=== PATIENT | male | born 1955 | race Caucasian/White ===

== ENCOUNTER 2024-10-09 13:37 | Inpatient (IN) | payer MEDICARE, SELFPAY ==
[2024-10-09] VITALS (10 sets, daily range): BP systolic 167–191; BP diastolic 100–145; PULSE 68–100; RESP 16–20; TEMP 35.1–37.1; O2SAT 94–98; BMI 26.7; BMI 27.1
--- NOTE | 2024-10-09 13:46 | ED.ABDPAIN ---
HPI - Abdominal Pain General Time Seen by Provider: 13:47 Date Seen: 10/09/24 Chief Complaint: Abdominal Pain Stated Complaint: Abdominal Pain Time Seen by Provider: 10/09/24 13:46 Source: patient and RN notes reviewed Mode of arrival: ambulatory Limitations: no limitations History of Present Illness HPI narrative: This 69-year-old male is coming in with periumbilical abdominal pain that has been present since about 2:00 a.m.. It is there constantly, walking maybe makes it worse, nothing makes it better. It awoke him from sleep. He had a normal bowel movement yesterday. He has had diminished appetite, last ate last night at dinner around 6:00 p.m.. He has not noted fever but he has felt hot and sweaty with the pain. No urinary symptoms. No prior abdominal surgery. He is nauseated, has reportedly had some dry heaving but no true vomiting. He is not on any chronic medications, no known cardiac or pulmonary issues. Related Data Home Medications ?Medication ?Instructions ?Recorded ?Confirmed No Known Home Medications 10/09/24 10/09/24 Allergies Allergy/AdvReac Type Severity Reaction Status Date / Time No Known Drug Allergies Allergy Verified 10/09/24 13:45 Review of Systems Status of ROS Reports: 6 or more systems reviewed and unremarkable except as noted in History and below PFSH PFSH Social History Smoking Status: Never smoker How often do you have a drink containing alcohol: monthly or less AUDIT-C Alcohol total score: 1 Non-prescribed substance use: denies use Exam Const: Vital Signs, click to edit/add: Vital Signs - 24 hr 10/09/24 13:41 10/09/24 13:51 10/09/24 13:59 Temperature 95.2 F L Pulse Rate [Pulse Oximeter] 68 Pulse Rate [Right Pulse Oximeter] Respiratory Rate 20 Blood Pressure [Ri ght Arm] Blood Pressure [Ri ght Upper Arm] 176/100 H Pulse Oximetry 98 97 Oxygen Delivery Me thod Room Air 10/09/24 15:40 10/09/24 17:37 Temperature 96.6 F L 98.7 F Pulse Rate [Pulse Oximeter] 76 Pulse Rate [Right Pulse Oximeter] 87 Respiratory Rate 18 18 Blood Pressure [Ri ght Arm] 167/109 H Blood Pressure [Ri ght Upper Arm] 174/106 H Pulse Oximetry 97 97 Oxygen Delivery Me thod Room Air Room Air This 69-year-old male is alert, interactive, no apparent distress but looks like he is uncomfortable. Sclera clear, face atraumatic, able speak in complete sentences. CV regular rate and rhythm, soft 1 to 2/6 systolic murmur, normal S1-S2, no S3-S4. Abdomen is soft, nondistended, bowel sounds are present. He has definite para umbilical abdominal pain and pain that is moving towards the right lower quadrant. There is no rebound or guarding. Skin is dia, warm and dry, no rash. Patient was ambulatory into the ED of his own accord. Documenting provider has reviewed patient's vital signs: yes Course Course ED Course: This patient is concerning for surgical abdomen, will be proceeding with CT imaging. Will get full complement of labs. He is going to need some pain management, will observe respiratory status with pulse oximetry, initiate IV fluids, fentanyl and Zofran. Reevaluation(s) Time of Reevaluation #1: 15:22 Reevaluation #1: hydraulic controls technician called, patient is contrast infiltrated and the CT is noncontrast. We will have the noncontrast CT read and see if this is adequate to give us a diagnosis. His glucose was 186, he will be doing a hemoglobin A1c to see if patient is qualifying for diabetes. Time of Reevaluation #2: 15:45 Reevaluation #2: Have reviewed with patient my preliminary finding that it looks like pancreatitis on his CT. We will make sure the radiologist does not think we need repeat imaging at this time. Will obtain a right upper quadrant ultrasound at some point to look at his gallbladder. He does endorse drinking alcohol, had 2 or 3 beers golfing yesterday. His IV infiltrated, they are looking to find new site. His pain is returning, IV Fentanyl initially did help. Time of Reevaluation #3: 16:53 Reevaluation #3: Patient's pain has not been controlled by the 25 mcg dose of fentanyl. Will move to dose of Dilaudid. Consultations Consultation #1: Have reviewed patient's case with Dr. Buchanan. I do not see this patient tolerating orals or oral pain medicine at this time. He is requiring IV fentanyl, have had to order subsequent dosing. She is aware that the gallbladder has not been completely assessed at this time. Radiologist was able to see that his appendix is normal. Time: 16:23 Vital Signs Vital signs: Initial Vital Signs Pulse Rate 68 10/09/24 13:41 Respiratory Rate 20 10/09/24 13:41 Blood Pressure 176/100 H 10/09/24 13:41 Blood Pressure Mean 125 H 10/09/24 13:41 Blood Pressure Position Sitting 10/09/24 13:41 Pulse Oximetry 98 10/09/24 13:41 Oxygen Delivery Method Room Air 10/09/24 13:41 Vital Signs Pulse Rate 68 10/09/24 13:41 Respiratory Rate 20 10/09/24 13:41 Blood Pressure 176/100 H 10/09/24 13:41 Pulse Oximetry 98 10/09/24 13:41 Oxygen Delivery Method Room Air 10/09/24 13:41 Temperature 98.7 F 10/09/24 17:37 Pulse Rate 87 10/09/24 17:37 Respiratory Rate 18 10/09/24 17:37 Blood Pressure 167/109 H 10/09/24 17:37 Pulse Oximetry 97 10/09/24 17:37 Oxygen Delivery Method Room Air 10/09/24 17:37 Medications Administered Medications: Discontinued Medications Generic Name Dose Route Start Last Admin Trade Name Freq PRN Reason Stop Dose Admin Fentanyl 50 mcg 10/09/24 13:59 10/09/24 14:29 Fentanyl 100 Mcg/2 Ml Inj IVP 10/09/24 14:00 50 mcg ONCE ONE Administration Fentanyl 25 mcg 10/09/24 15:52 10/09/24 16:09 Fentanyl 100 Mcg/2 Ml Inj IVP 25 mcg Q2H PRN Administration Pain Hydromorphone HCl 0.5 mg 10/09/24 16:53 10/09/24 16:59 Hydromorphone 0.5 Mg/0.5 Ml Inj IVP 10/09/24 16:54 0.5 mg ONCE ONE Administration Sodium Chloride 1,000 mls @ 500 mls/hr 10/09/24 14:00 10/09/24 17:17 0.9 % Sodium Chloride 1000 Ml IV 10/09/24 15:59 Infused .Q2H JESSENIA Infusion Sodium Chloride 1,000 mls @ 500 mls/hr 10/09/24 16:22 10/09/24 17:17 0.9 % Sodium Chloride 1000 Ml IV 10/09/24 18:21 500 mls/hr .Q2H JESSENIA Infusion Ondansetron HCl 4 mg 10/09/24 13:59 10/09/24 14:27 Ondansetron 2 Mg/Ml Inj IVP 10/09/24 14:00 4 mg ONCE ONE Administration MDM - Abdominal Pain Lab Data Attestation: I reviewed the patient's lab results. Labs: Lab Results 10/09/24 10/09/24 Range/Units 14:25 15:20 WBC 14.10 H (4.50-11.00) K/uL RBC 5.26 (4.30-5.90) m/uL Hgb 16.3 (13.5-17.5) gm/dL Hct 47.3 (37.0-53.0) % MCV 90 (80-100) fL MCH 31 (26-34) pg MCHC 35 (32-36) gm/dL RDW Coeff of Mayra 11.7 (11.5-15.5) % Plt Count 229 (140-440) K/uL Neut % (Auto) 91.3 H (42.0-72.0) % Lymph % (Auto) 4.6 L (20-44) % [place] % (Auto) 3.8 (0.0-11.0) % Eos % (Auto) 0.1 (0.0-7.0) % Baso % (Auto) 0.1 (0.0-3.0) % Neut # (Auto) 12.90 H (1.7-7.0) K/uL Lymph # (Auto) 0.60 L (0.90-2.90) K/uL [place] # (Auto) 0.50 (0.00-0.90) K/UL Eos # (Auto) 0.00 (0.00-0.50) K/uL Baso # (Auto) 0.00 (0.00-0.30) K/uL Abs Immat Gran (auto) 0.00 (0.00-0.30) K/uL Imm/Tot Granulo (auto) 0.1 % Sodium 138 (135-149) mmol/L Potassium 4.5 (3.6-5.1) mmol/L Chloride 101 (96-114) mmol/L Carbon Dioxide 29 (20-32) mmol/L Anion Gap 8 (7-15) mEq/L BUN 21 (7-30) mg/dL Creatinine 0.9 (0.5-1.5) mg/dL Estimated Creat Clear 75.44 Estimated GFR 92 ml/min Glucose 186 H (60-115) mg/dL Hemoglobin A1c 5.1 (0-5.6) % Lactate 2.5 H (0.5-1.9) mmol/L Calcium 10.5 (8.4-10.6) mg/dL Total Bilirubin 0.9 (0.1-1.5) mg/dL AST 52 H (12-35) U/L ALT 40 (4-50) U/L Alkaline Phosphatase 84 (40-150) U/L C-Reactive Protein 0.9 (0.5-1.0) mg/dL Total Protein 7.9 (6.0-8.3) g/dL Albumin 4.6 (3.3-5.0) g/dL Triglycerides 80 (40-149) mg/dL Lipase 5187 H (23-300) U/L Lab Acknowledgement Test Added Imaging Data CT scan - abdomen: Attestation: I have reviewed the pertinent imaging results. Radiologist's impression: Patient: EVITA THOMPSON Facility:?[facility] Patient ID:?[id number] Site Patient ID:?[id number]. Site :?[id number] Study:?CT-Abdomen/Pelvis W/O-10/09/2024 3:24:21 PM Ordering Physician:?Thony Shah Final Report: INDICATION: Periumbilical pain. TECHNIQUE: CT abdomen and pelvis without contrast. COMPARISON: None. FINDINGS: Lower chest: Asymmetric elevation of the left hemidiaphragm. Mild left basilar bronchiectasis with surrounding basilar consolidation, at least partially reflecting atelectasis. Noncontrast technique limits solid organ evaluation. Liver: Normal in size and attenuation. No suspicious masses. Gallbladder and bile ducts: No stones or inflammation. No biliary dilatation. Pancreas: Moderate diffuse fat stranding about the pancreas with small to moderate volume free fluid tracking inferiorly along the retroperitoneal planes. Pancreatic parenchyma is not well evaluated on this noncontrast examination. Spleen: Normal in size. No masses. Adrenal glands: Normal in size. No nodules. Kidneys: Normal in size. No suspicious masses, stones, or hydronephrosis. GI tract: Adjacent to the pancreas, there is relative wall thickening of the 2nd and 3rd duodenal segments. Bowel is normal in caliber without evidence of obstruction. Mild colonic diverticulosis. Normal appendix. Vasculature: Abdominal aorta is normal in caliber. Lymph nodes: No lymphadenopathy. Peritoneum/Abdominal Wall: No sign of mass or infiltration. No free air small to moderate volume free fluid about the pancreas, as above. Pelvis: Nonspecific mild prostate calcification. Bones: Unremarkable for age. IMPRESSION: 1. Findings compatible with acute pancreatitis with small to moderate volume peripancreatic free fluid. The pancreatic parenchyma cannot be reliably evaluated for signs of necrosis or an underlying mass on this noncontrast examination. 2. Mild left basilar bronchiectasis with surrounding basilar consolidation, at least partially reflecting atelectasis. Please note that all CT scans at this facility use dose modulation, iterative reconstruction, and/or weight-based dosing when appropriate to reduce radiation dose to as low as reasonably achievable. Dictated by Chucky Sotelo MD @ 10/09/2024 4:04:19 PM (Electronic Signature) ECG Data Attestation: I personally reviewed and interpreted this ECG as follows: (Sinus rhythm with premature atrial complexes, rate is in the 70s, [address] T-wave changes.) ECG interpretation date: 10/09/24 Prior ECG tracings: not available for review Discharge Plan Discharge Clinical Impression: Pancreatitis Qualifiers: Chronicity: acute Pancreatitis type: unspecified pancreatitis type Acute pancreatitis complication: unspecified Qualified Code(s): K85.90 - Acute pancreatitis without necrosis or infection, unspecified
--- NOTE | 2024-10-09 13:59 | CRLHL7_ITS ---
For Patients: As a result of the Century Cures Act, medical imaging exams and procedure reports are released immediately into your electronic medical record. You may view this report before your referring provider. If you have questions, please contact your health care provider. INDICATION: Periumbilical pain. TECHNIQUE: CT abdomen and pelvis without contrast. COMPARISON: None. FINDINGS: Lower chest: Asymmetric elevation of the left hemidiaphragm. Mild left basilar bronchiectasis with surrounding basilar consolidation, at least partially reflecting atelectasis. Noncontrast technique limits solid organ evaluation. Liver: Normal in size and attenuation. No suspicious masses. Gallbladder and bile ducts: No stones or inflammation. No biliary dilatation. Pancreas: Moderate diffuse fat stranding about the pancreas with small to moderate volume free fluid tracking inferiorly along the retroperitoneal planes. Pancreatic parenchyma is not well evaluated on this noncontrast examination. Spleen: Normal in size. No masses. Adrenal glands: Normal in size. No nodules. Kidneys: Normal in size. No suspicious masses, stones, or hydronephrosis. GI tract: Adjacent to the pancreas, there is relative wall thickening of the 2nd and 3rd duodenal segments. Bowel is normal in caliber without evidence of obstruction. Mild colonic diverticulosis. Normal appendix. Vasculature: Abdominal aorta is normal in caliber. Lymph nodes: No lymphadenopathy. Peritoneum/Abdominal Wall: No sign of mass or infiltration. No free air small to moderate volume free fluid about the pancreas, as above. Pelvis: Nonspecific mild prostate calcification. Bones: Unremarkable for age. IMPRESSION: 1. Findings compatible with acute pancreatitis with small to moderate volume peripancreatic free fluid. The pancreatic parenchyma cannot be reliably evaluated for signs of necrosis or an underlying mass on this noncontrast examination. 2. Mild left basilar bronchiectasis with surrounding basilar consolidation, at least partially reflecting atelectasis. Please note that all CT scans at this facility use dose modulation, iterative reconstruction, and/or weight-based dosing when appropriate to reduce radiation dose to as low as reasonably achievable. Dictated by Chucky Sotelo MD @ 10/09/2024 4:04:19 PM (Electronically Signed)
[2024-10-09] MEDS: ONDANSETRON 2 MG/ML inj 4 MG IVP (14:27)
[2024-10-09 14:36] LABS: Hematocrit 47.3 % (37.0-53.0); Hemoglobin* 16.3 gm/dL (13.5-17.5); Immature Granulocytes Pct Auto 0.1 %; Mean Corpuscular HGB Conc 35 gm/dL (32-36); Mean Corpuscular Hemoglobin 31 pg (26-34); Mean Corpuscular Volume 90 fL (80-100); RDW Coefficient of Variation % 11.7 % (11.5-15.5); Red Blood Count 5.26 m/uL (4.30-5.90); White Blood Count* 14.10 K/uL (4.50-11.00)
[2024-10-09 14:47] LABS: Albumin* 4.6 g/dL (3.3-5.0); Chloride* 101 mmol/L (96-114)
[2024-10-09 14:48] LABS: Immature Granulocytes Abs Auto 0.00 K/uL (0.00-0.30); Lymphocytes Absolute Auto 0.60 K/uL (0.90-2.90); Potassium* 4.5 mmol/L (3.6-5.1); Slide Review Reflex No; Sodium* 138 mmol/L (135-149)
[2024-10-09 14:50] LABS: Alanine Aminotransferase* 40 U/L (4-50); Aspartate Amino Transferase* 52 U/L (12-35); Blood Urea Nitrogen* 21 mg/dL (7-30); Creatinine* 0.9 mg/dL (0.5-1.5); Est. Creatinine Clearance* 75.44; Estimated Glomerular Filt Rate 92 ml/min
[2024-10-09 14:51] LABS: Alkaline Phosphatase* 84 U/L (40-150); Anion Gap 8 mEq/L (7-15); Bilirubin Total* 0.9 mg/dL (0.1-1.5); Calcium* 10.5 mg/dL (8.4-10.6); Carbon Dioxide* 29 mmol/L (20-32); Glucose* 186 mg/dL (60-115); Total Protein* 7.9 g/dL (6.0-8.3)
[2024-10-09 15:53] LABS: Lactate* 2.5 mmol/L (0.5-1.9)
--- NOTE | 2024-10-09 17:49 | PM.IMHP1 ---
Assessment and Plan Assessment and plan (1) Pancreatitis: Problem comment: - acute pancreatitis (epigastric pain, nausea, elevated lipase, pancreatitis on CT abd), suspect due to alcohol use. Triglycerides are within normal limits. AST is mildly elevated, which could be consistent with alcohol use. Liver function tests otherwise unremarkable. Patient has not had any abdominal surgeries, right upper quadrant ultrasound is pending. - supportive cares with IV fluids, clear liquids for now and advance as tolerated when less painful or if hungry. Status: Acute (2) Heavy alcohol use: Problem comment: Patient is already diaphoretic, but says that he has gone for periods of time without alcohol even recently without any symptoms. I will give him a dose of phenobarbital tonight and start CIWA protocol. I have counseled patient on alcohol use and that the amount that he is drinking is considered heavy alcohol use and that any amount of alcohol in the future could potentially cause a recurrence of pancreatitis. Patient expressed a desire to abstain from alcohol and said that it should be easy for him and did not need help. Status: Acute (3) CAD (coronary artery disease): Problem comment: - Abnormal stress test in 2019. Saw cardiology. Heart scan was recommended. Patient was lost to follow up. - patient is diaphoretic this evening which could be secondary to pain or withdrawal from alcohol, but I am concerned about his history of coronary artery disease without any treatment of hypertension and hyperlipidemia or follow-up for the last 5 years. I have reviewed the EKG from the emergency department and have added on a troponin to the labs drawn there. Additionally I will repeat an EKG and troponin. Monitor on cardiac telemetry. Status: Chronic (4) Hypertension: Problem comment: Patient was lost to follow up, having last seen his PCP in 2019. He has not been taking any prescription medications. Elevated BPs here are likely complicated by pain. Monitor. Recommend reestablishing care as outpatient with a PCP to address h/o HTN, hyperlipidemia, CAD. Status: Chronic (5) Hyperlipidemia: Problem comment: History of this common none has been checked in the last 5 years he has not been on any medications. Recommend reestablishing with primary care as an outpatient to determine if medication is needed. Status: Chronic (6) Lactate blood increased: Problem comment: Patient is not septic, I suspect this is due to dehydration from pancreatitis. He will likely have abdominal 3rd spacing due to pancreatitis. Will give another IV fluid bolus and continue on maintenance fluids. Status: Acute Total Time Spent Total Time Spent: Time spent: Today I spent 75 minutes seeing the patient, discussing the patient with ER staff, reviewing Expanse and EPIC notes/diagnostics, discussing the care plan with our care team that includes social work, PT/OT, pharmacy, RT, long-term and documenting my impressions and plan in the medical record. Hospitalist- H&P: HPI History of Present Illness Time Seen by Provider: 17:50 Date Seen: 10/09/24 Chief complaint: Abdominal Pain Narrative: Joy Champagne is a 69 year old male with a history of hypertension, hyperlipidemia, and coronary artery disease who has not been on medications for these conditions because he was lost to follow-up 4-5 years ago and presents with epigastric abdominal pain. He tells me Dr. Rodriguez is his primary care provider although he has not seen him in 4-5 years. He has not Dr. Anywhere else either. At 2:00 a.m. he woke up with periumbilical pain. He was unable to go back to sleep because of the pain. He felt nauseous and had some dry heaves, but no vomiting. He tried different positions and took some Tums, but nothing seemed to help. He felt sweaty with the pain, but then noted feeling cold because stands are turned on in the house because of it being summer. He says he has never had anything like this before. He has not eaten anything this morning, but did try half a bottle of zeke jolynn. This went okay but it did not help either. He got several doses of fentanyl and a dose of hydromorphone in the emergency department but says he still having quite a bit of pain, 5 to 6/10 right now. He says neither medication felt like it helped much. He denies chest pain or shortness of breath. He has a bowel movement regularly every day in the morning, but did not have 1 this morning. He denies diarrhea, constipation, melena or hematochezia. Review of Systems Status of ROS: Reports: 10 or more systems reviewed and unremarkable except as noted in History and below Medical Decision Making Medical Decision Making Code Status: Full code Has patient completed a Health Care Directive: No During This Stay, Who Would You Like To Make Decisions For You In The Event You Are Unable To Make Them For Yourself?: , [facility] Medical History (Updated 10/09/24 @ 21:16 by Yudith Buchanan MD) CAD (coronary artery disease) ?I25.10 - Atherosclerotic heart disease of [place] coronary artery without angina pectoris (ICD-10) Hyperlipidemia ?E78.5 - Hyperlipidemia, unspecified (ICD-10) Hypertension ?I10 - Essential (primary) hypertension (ICD-10) Social History (Updated 10/09/24 @ 20:29 by Yudith Buchanan MD) Narrative: , Love. Former smoker 15 years of several packs per day, quit 30 years ago. Drinks 3-4 cans of beer per day (some of these are the larger 16 oz cans) plus more on the weekends when at social gatherings. Denies recreational drug use. How often do you have a drink containing alcohol: monthly or less AUDIT-C Alcohol total score: 1 Non-prescribed substance use: denies use Meds Home Medications and Allergies Home Medications ?Medication ?Instructions ?Recorded ?Confirmed ?Type No Known Home Medications 10/09/24 10/09/24 History Home Medication Comments: daily MVI, tumeric, bioflex, vit B complex, vit C Allergies Allergy/AdvReac Type Severity Reaction Status Date / Time No Known Drug Allergies Allergy Verified 10/09/24 13:45 Exam Narrative: Exam Narrative: General: No acute distress. Diaphoretic. Awake alert oriented x3. HEENT: Normocephalic atraumatic, pupils equally round and reactive to light and accommodation. Oropharynx clear. Mucous membranes are moist. No cervical lymphadenopathy, thyromegaly or carotid bruits. No JVD. Cardiovascular: Regular rate and rhythm. No murmurs, gallops, or rubs. Chest: No increased work of breathing. Clear to auscultation bilaterally. No crackles or wheezes. Abdomen: Bowel sounds present. Soft, nondistended, tender in the epigastrium and right upper quadrant. No hepatosplenomegaly or masses. Extremities: No edema, no cyanosis or clubbing. Skin: No jaundice, no rashes on visible skin. Const: Vital Signs, click to edit/add: Vital Signs - 24 hr 10/09/24 13:41 10/09/24 13:51 10/09/24 13:59 Temperature 95.2 F L Pulse Rate [Pulse Oximeter] 68 Pulse Rate [Right Pulse Oximeter] Respiratory Rate 20 Blood Pressure [Ri ght Arm] Blood Pressure [Ri ght Upper Arm] 176/100 H Pulse Oximetry 98 97 Oxygen Delivery Me thod Room Air 10/09/24 15:40 10/09/24 17:37 Temperature 96.6 F L 98.7 F Pulse Rate [Pulse Oximeter] 76 Pulse Rate [Right Pulse Oximeter] 87 Respiratory Rate 18 18 Blood Pressure [Ri ght Arm] 167/109 H Blood Pressure [Ri ght Upper Arm] 174/106 H Pulse Oximetry 97 97 Oxygen Delivery Me thod Room Air Room Air Hospitalist - H&P: Result Labs Labs: Short CBC 10/09/24 Range/Units 14:25 WBC 14.10 H (4.50-11.00) K/uL Hgb 16.3 (13.5-17.5) gm/dL Hct 47.3 (37.0-53.0) % Plt Count 229 (140-440) K/uL BMP 10/09/24 14:25 Sodium 138 Potassium 4.5 Chloride 101 Carbon Dioxide 29 BUN 21 Creatinine 0.9 Glucose 186 H Calcium 10.5 Liver Function 10/09/24 Range/Units 14:25 Total Bilirubin 0.9 (0.1-1.5) mg/dL AST 52 H (12-35) U/L ALT 40 (4-50) U/L Alkaline Phosphatase 84 (40-150) U/L Albumin 4.6 (3.3-5.0) g/dL 10/09/2024 EKG: Sinus rhythm with premature atrial complexes, 77 beats per minute, nonspecific T-wave abnormality, prolonged QT. Ordering Physician: Alyssa Bhandari M.D. Date of Service: 10/09/24 Procedure(s): CT abdomen pelvis wo [facility] Accession Number(s): [id number] cc: Provider,Not a Local; Alyssa Bhandari M.D.~ For Patients: As a result of the Century Cures Act, medical imaging exams and procedure reports are released immediately into your electronic medical record. You may view this report before your referring provider. If you have questions, please contact your health care provider. INDICATION: Periumbilical pain. TECHNIQUE: CT abdomen and pelvis without contrast. COMPARISON: None. FINDINGS: Lower chest: Asymmetric elevation of the left hemidiaphragm. Mild left basilar bronchiectasis with surrounding basilar consolidation, at least partially reflecting atelectasis. Noncontrast technique limits solid organ evaluation. Liver: Normal in size and attenuation. No suspicious masses. Gallbladder and bile ducts: No stones or inflammation. No biliary dilatation. Pancreas: Moderate diffuse fat stranding about the pancreas with small to moderate volume free fluid tracking inferiorly along the retroperitoneal planes. Pancreatic parenchyma is not well evaluated on this noncontrast examination. Spleen: Normal in size. No masses. Adrenal glands: Normal in size. No nodules. Kidneys: Normal in size. No suspicious masses, stones, or hydronephrosis. GI tract: Adjacent to the pancreas, there is relative wall thickening of the 2nd and 3rd duodenal segments. Bowel is normal in caliber without evidence of obstruction. Mild colonic diverticulosis. Normal appendix. Vasculature: Abdominal aorta is normal in caliber. Lymph nodes: No lymphadenopathy. Peritoneum/Abdominal Wall: No sign of mass or infiltration. No free air small to moderate volume free fluid about the pancreas, as above. Pelvis: Nonspecific mild prostate calcification. Bones: Unremarkable for age. IMPRESSION: 1. Findings compatible with acute pancreatitis with small to moderate volume peripancreatic free fluid. The pancreatic parenchyma cannot be reliably evaluated for signs of necrosis or an underlying mass on this noncontrast examination. 2. Mild left basilar bronchiectasis with surrounding basilar consolidation, at least partially reflecting atelectasis. Please note that all CT scans at this facility use dose modulation, iterative reconstruction, and/or weight-based dosing when appropriate to reduce radiation dose to as low as reasonably achievable. Dictated by Chucky Sotelo MD @ 10/09/2024 4:04:19 PM (Electronically Signed)
--- NOTE | 2024-10-09 18:48 | CRLHL7_ITS ---
For Patients: As a result of the Century Cures Act, medical imaging exams and procedure reports are released immediately into your electronic medical record. You may view this report before your referring provider. If you have questions, please contact your health care provider. INDICATION: Pancreatitis. COMPARISON: Same day CT of the abdomen and pelvis TECHNIQUE: Sonographic evaluation of the right upper abdominal quadrant was performed utilizing smith-scale and color/spectral Doppler imaging techniques. FINDINGS: The distal abdominal aorta measures 1.9 centimeters in maximal diameter. The more proximal abdominal aorta is obscured by bowel gas. Visualized portion of the IVC is patent. The pancreas is obscured by bowel gas. The liver measures 15.9 centimeters in length. Smooth hepatic contour. Normal hepatic echogenicity. Negative sonographic Dawson`s sign. No gallbladder wall thickening. No pericholecystic fluid. No cholelithiasis. Mildly dilated gallbladder. Main portal vein diameter measures 6 millimeters. There is apparent bidirectional flow within the main portal vein. Main portal vein peak systolic velocity measures 57.1 cm/s. Right kidney measures 10.6 centimeters. No right-sided hydronephrosis. The common bile duct is obscured by bowel gas. IMPRESSION: Technically challenging exam due to overlying bowel gas The gallbladder is mildly distended, but is otherwise sonographically unremarkable. There is apparent bidirectional flow within the main portal vein. Some differential considerations include portal hypertension, portal vein occlusion (presumably beyond the field of view), vascular shunting, hepatic venous outflow obstruction, and right heart failure. Consider further evaluation with contrast-enhanced CT or MRI of the abdomen. Dictated by Cory Stewart MD @ 10/09/2024 9:13:21 PM (Electronically Signed)
[2024-10-09 19:10] LABS: Triglycerides* 80 mg/dL (40-149)
[2024-10-09] MEDS: PHENobarbitaL 130 MG in 0.9 % SODIUM CHLORIDE 100 ml 100 ML 204 MG IVPB (20:21)
[2024-10-09] MEDS: THIAMINE 100 MG TABLET PO (20:22)
[2024-10-09 20:54] LABS: Lactate* 2.6 mmol/L (0.5-1.9)
[2024-10-09 21:32] LABS: Appearance Urine Clear (Clear)
[2024-10-09] MEDS: LACTATED RINGERS 1000 ML 1,000 ML 500 ML IV (22:10)
--- NOTE | 2024-10-09 23:20 | PC.NURSE ---
[id number]: Pt. is AO x4. Pt. arrived from ED, able to move IND. in room. Pt. pain managed by meds and ice pack. -see EMAR. Pt. family bedside and supportive. Pt. CIWA scores < than 3. Pt. HTN, notified. EKG performed, MD given results.
[2024-10-10] VITALS (15 sets, daily range): BP systolic 160–195; BP diastolic 97–125; PULSE 95–155; RESP 16–22; TEMP 36.6–37.4; O2SAT 92–98
[2024-10-10] MEDS: LACTATED RINGERS 1000 ML 1,000 ML 125 ML IV ×4 (00:19→21:16)
--- NOTE | 2024-10-10 01:41 | W.PM.CROSSCO ---
Subjective Subjective Time Seen by Provider: 01:41 Date Seen: 10/10/24 Principal diagnosis: tachycardia Interval history: received a call from nursing. Hr climbed to 160 fro 5 minutes. Telemetry read a fib and sinus tach. Patient states he was rolling around in bed no chest pain no shortness of breath no headache or dizziness is having abdominal pain that is worsening Objective Objective Data Details: GEN: awake alert oriented X3 CARD: RRR S1+ s2+ no g/m/r HR 99-109 BP 173/125 Assessment and Plan Assessment and plan (1) Pancreatitis: Problem comment: - acute pancreatitis (epigastric pain, nausea, elevated lipase, pancreatitis on CT abd), suspect due to alcohol use. Triglycerides are within normal limits. AST is mildly elevated, which could be consistent with alcohol use. Liver function tests otherwise unremarkable. Patient has not had any abdominal surgeries, right upper quadrant ultrasound is pending. - supportive cares with IV fluids, clear liquids for now and advance as tolerated when less painful or if hungry. Status: Acute Plan Reviewed tachycardia EKG Sinus arrhythmia with prolonged QT No beta blockers given No anticoagulation needed no sign of withdrawal recommended pain medication continue to monitor hypertension: likely due to combination pain and IVF recommended pain medication and monitor Patient was seen via televideo camera on time 133a camera turned off at 137a
--- NOTE | 2024-10-10 03:43 | PC.NURSE ---
End of Shift (): Patient pleasant and cooperative. Afebrile. CIWA 0. Rating pain in abdomen up to 8/10 and PRN Dilaudid given x2 and pain decreased to 4/10. Heart rate increased to 140-150s and BP continues to be elevated. Alessandro DAVILA updated and on to see pt. Heart rate decreased to 90-100 after approx 5 min. EKG done. Patient denies any chest pain or shortness of breath. Up with SBA and denies any lightheadedness or dizziness. Tolerating clear liquids with no nausea.
[2024-10-10] MEDS: ONDANSETRON 2 MG/ML inj 4 MG IVP ×2 (03:49→13:14)
[2024-10-10] MEDS: SODIUM CHLORIDE 0.9 % (FLUSH) 10 ML SYRINGE 5 ML IVF ×3 (08:22→21:16)
[2024-10-10] MEDS: MULTIVITAMIN/MINERALS 1 TABLET 1 TAB PO (08:22)
[2024-10-10] MEDS: FOLIC ACID 1 MG TABLET PO (08:22)
[2024-10-10 08:41] LABS: Hematocrit 49.0 % (37.0-53.0); Hemoglobin* 16.8 gm/dL (13.5-17.5); Immature Granulocytes Pct Auto 0.1 %; Mean Corpuscular HGB Conc 34 gm/dL (32-36); Mean Corpuscular Hemoglobin 31 pg (26-34); Mean Corpuscular Volume 91 fL (80-100); RDW Coefficient of Variation % 11.8 % (11.5-15.5); Red Blood Count 5.39 m/uL (4.30-5.90); White Blood Count* 19.17 K/uL (4.50-11.00)
[2024-10-10 08:42] LABS: Immature Granulocytes Abs Auto 0.00 K/uL (0.00-0.30); Lymphocytes Absolute Auto 0.90 K/uL (0.90-2.90); Slide Review Reflex No
[2024-10-10 08:44] LABS: Lactate Sepsis w/Reflex* 2.1 mmol/L (0.5-1.9)
--- NOTE | 2024-10-10 09:46 | NUTR.NU ---
RDN with nutrition screen for pancreatitis. Patient admitted with pancreatitis. Medical history includes, but not limited to heavy alcohol use, CAD, hypertension, and hyperlipidemia. Current weight 204lbs, height 6ft, and BMI 27.7kg/m2. No recent weight history available at this time. No tray ordered at dinner yesterday. Patient is currently on a clear liquid diet. RDN visited with patient in room on this day. Patient declined verbal education for designated caregiver and will pass along the handout provided. Patient agreed to receive diet education related to pancreatitis. Patient was provided diet education on a low fat diet. Discussed foods to include and foods to avoid, limiting to 30 grams of fat per day for the next week or as needed. Education also provided following a low fat diet (about 60 grams/day) long-term. Verbal and written information as well as a sample menu provided from [facility]. Patient verbalized understanding. RDN's contact information was provided and patient was encouraged to contact RDN with questions.
[2024-10-10 09:50] LABS: Albumin* 4.1 g/dL (3.3-5.0); Chloride* 104 mmol/L (96-114)
[2024-10-10 09:51] LABS: Potassium* 4.2 mmol/L (3.6-5.1); Sodium* 136 mmol/L (135-149)
[2024-10-10 09:53] LABS: Alanine Aminotransferase* 33 U/L (4-50); Alkaline Phosphatase* 60 U/L (40-150); Anion Gap 5 mEq/L (7-15); Aspartate Amino Transferase* 65 U/L (12-35); Bilirubin Total* 0.9 mg/dL (0.1-1.5); Blood Urea Nitrogen* 19 mg/dL (7-30); Carbon Dioxide* 27 mmol/L (20-32); Creatinine* 0.8 mg/dL (0.5-1.5); Est. Creatinine Clearance* 75.44; Estimated Glomerular Filt Rate 95 ml/min; Total Protein* 7.2 g/dL (6.0-8.3)
[2024-10-10 09:54] LABS: Calcium* 9.4 mg/dL (8.4-10.6); Glucose* 108 mg/dL (60-115)
--- NOTE | 2024-10-10 12:29 | CRLHL7_ITS ---
For Patients: As a result of the Century Cures Act, medical imaging exams and procedure reports are released immediately into your electronic medical record. You may view this report before your referring provider. If you have questions, please contact your health care provider. Indication: Acute pancreatitis Technique: MRCP of the abdomen performed without intravenous contrast at 1.5 kennedy. Reconstructed images/MIPS were created. Comparison: 10/09/2024 CT and ultrasound of the abdomen Findings: Mildly motion degraded exam. There is elevation of the left hemidiaphragm which is again noted. No substantial pleural effusion. Smooth hepatic contour. Slightly decreased hepatic signal intensity on the in phase images when compared with the out of phase images. The gallbladder is mildly distended. No cholelithiasis or gallbladder wall thickening. Normal caliber of the biliary tree. No choledocholithiasis is detected. No splenomegaly. Extensive pancreatic and peripancreatic edema is again noted compatible with pancreatitis. Please note that the presence or absence of necrotic pancreatic tissue is not assessed in the absence of intravenous contrast. No appreciable dilation of the main pancreatic duct. Normal adrenal glands. No hydronephrosis. No focal abnormally dilated loops of bowel within the field of view. Mild ascites. No enlarged regional lymph nodes. No abdominal aortic aneurysm. There are osseous degenerative changes Impression: 1. Acute pancreatitis with prominent peripancreatic edema and mild ascites. 2. Normal caliber of the biliary tree. No choledocholithiasis is detected. 3. Slightly decreased hepatic signal intensity on the in phase images when compared with the out of phase images, possibly artifactual or due to hepatic iron deposition. 4. Elevation of the left hemidiaphragm. Dictated by Cory Stewart MD @ 10/10/2024 6:07:56 PM (Electronically Signed)
--- NOTE | 2024-10-10 14:59 | P.IMPN_ITS ---
Assessment and Plan Assessment and plan (1) Pancreatitis: Problem comment: - acute pancreatitis (epigastric pain, nausea, elevated lipase, pancreatitis on CT abd), suspect due to alcohol use. Triglycerides are within normal limits. AST is mildly elevated, which could be consistent with alcohol use. Liver function tests otherwise unremarkable. Patient has not had any abdominal surgeries, right upper quadrant ultrasound is pending. - supportive cares with IV fluids, clear liquids for now and advance as tolerated when less painful or if hungry 10/10 lipase down trending, leukocytosis trending up, lactate slow to respond, remains mildly tachy, hypertensive. MRCP ordered. Fluid bolus in addition to maintenance fluids Status: Acute (2) Heavy alcohol use: Problem comment: Patient is already diaphoretic, but says that he has gone for periods of time without alcohol even recently without any symptoms. I will give him a dose of phenobarbital tonight and start CIWA protocol. I have counseled patient on alcohol use and that the amount that he is drinking is considered heavy alcohol use and that any amount of alcohol in the future could potentially cause a recurrence of pancreatitis. Patient expressed a desire to abstain from alcohol and said that it should be easy for him and did not need help. Status: Acute (3) CAD (coronary artery disease): Problem comment: - Abnormal stress test in 2020. Saw cardiology. Heart scan was recommended. Patient was lost to follow up. - patient is diaphoretic this evening which could be secondary to pain or withdrawal from alcohol, but I am concerned about his history of coronary artery disease without any treatment of hypertension and hyperlipidemia or follow-up for the last 5 years. I have reviewed the EKG from the emergency department and have added on a troponin to the labs drawn there. Additionally I will repeat an EKG and troponin. Monitor on cardiac telemetry. Status: Chronic (4) Hypertension: Problem comment: Patient was lost to follow up, having last seen his PCP in 2019. He has not been taking any prescription medications. Elevated BPs here are likely complicated by pain. Monitor. Recommend reestablishing care as outpatient with a PCP to address h/o HTN, hyperlipidemia, CAD. 10/10 metoprolol added given ongoing hypertension and tachycardia Status: Chronic (5) Hyperlipidemia: Problem comment: History of this common none has been checked in the last 5 years he has not been on any medications. Recommend reestablishing with primary care as an outpatient to determine if medication is needed. Status: Chronic (6) Lactate blood increased: Problem comment: Patient is not septic, I suspect this is due to dehydration from pancreatitis. He will likely have abdominal 3rd spacing due to pancreatitis. Will give another IV fluid bolus and continue on maintenance fluids. Continue fluid bolus and maintenance fluids Status: Acute (7) Tachycardia: Problem comment: In setting of above. Remains hypertensive. EKGs show sinus tachycardia with premature complexes monitoring tech Metoprolol has been started Status: Acute Total Time Spent Total Time Spent: Time spent: Today I spent 65 minutes seeing the patient, discussing the patient with ER staff, reviewing Expanse and EPIC notes/diagnostics, discussing the care plan with our care team that includes social work, PT/OT, pharmacy, RT, shelter and documenting my impressions and plan in the medical record. Subjective Date Seen: 10/10/24 Interval history: Patient is seen lying in bed this morning, daughter at bedside. Reports feeling better this morning. Tells me his abdominal pain has improved. Still has some mild intermittent nausea but no vomiting. Tolerating clears. Remains afebrile. Denies headache or dizziness. Denies chest pain or shortness of breath. Multiple IV attempts with only [address] Difficult stick for blood draws - PICC line ordered Has been hypertensive and mildly tachycardic. Denies known history of hypertension or arrhythmias - metoprolol has been started Leukocytosis trending up, afebrile. Lactate slow to respond to fluids - PICC line ordered, fluid bolus, MRCP ordered Lipase trending down Chronic alcohol use. Denies withdrawals or seizures Exam Narrative: Exam Narrative: PHYSICAL EXAM General: Pleasant, conversant, NAD HEENT: Normocephalic, atraumatic, sclera white, EOMI Cardiovascular: RRR, S1S2. No pitting edema Pulmonary: CTA bilaterally without rhonchi, rales, expiratory wheezes. No dyspnea on room air Abdominal: Soft, mildly distended, diffuse mild tenderness Neurological: Alert, answering questions appropriately, somewhat deflecting. cranial nerves intact, no focal findings Extremities: No gross joint deformity or swelling. AROMI. Neurovascularly intact Skin: Warm, dry. Const: Vital Signs, click to edit/add: Vital Signs - 24 hr 10/09/24 15:40 10/09/24 17:37 10/09/24 20:00 Temperature 96.6 F L 98.7 F Pulse Rate Pulse Rate [Pulse Oximeter] 76 Pulse Rate [Right Pulse Oximeter] 87 93 Respiratory Rate 18 18 18 Blood Pressure [Ri ght Arm] 167/109 H 181/145 H Blood Pressure [Ri ght Upper Arm] 174/106 H Pulse Oximetry 97 97 95 Oxygen Delivery Me thod Room Air Room Air Room Air 10/09/24 20:00 10/09/24 20:35 10/09/24 21:13 Temperature 98.7 F 98.1 F Pulse Rate Pulse Rate [Pulse Oximeter] Pulse Rate [Right Pulse Oximeter] 93 100 Respiratory Rate 18 18 Blood Pressure [Ri ght Arm] 181/145 H 174/133 H 182/114 H Blood Pressure [Ri ght Upper Arm] Pulse Oximetry 95 94 Oxygen Delivery Me thod Room Air Room Air 10/09/24 22:07 10/09/24 23:00 10/09/24 23:00 Temperature 98.3 F 98.3 F Pulse Rate Pulse Rate [Pulse Oximeter] Pulse Rate [Right Pulse Oximeter] 91 98 Respiratory Rate 16 16 Blood Pressure [Ri ght Arm] 191/111 H 176/115 H Blood Pressure [Ri ght Upper Arm] Pulse Oximetry 94 98 98 Oxygen Delivery [place] thod Room Air Room Air Room Air 10/09/24 23:00 10/09/24 23:00 10/09/24 23:00 Temperature 98.3 F Pulse Rate 90 Pulse Rate [Pulse Oximeter] Pulse Rate [Right Pulse Oximeter] 98 98 Respiratory Rate 16 18 Blood Pressure [Ri ght Arm] 176/115 H Blood Pressure [Ri ght Upper Arm] Pulse Oximetry 98 Oxygen Delivery Me thod Room Air 10/10/24 00:20 10/10/24 01:25 10/10/24 01:31 Temperature Pulse Rate Pulse Rate [Pulse Oximeter] Pulse Rate [Right Pulse Oximeter] 155 H 102 H Respiratory Rate 20 Blood Pressure [Ri ght Arm] 182/101 H 173/125 H Blood Pressure [Ri ght Upper Arm] Pulse Oximetry 98 Oxygen Delivery Me thod Room Air 10/10/24 01:40 10/10/24 02:00 10/10/24 03:00 Temperature 98.3 F Pulse Rate Pulse Rate [Pulse Oximeter] Pulse Rate [Right Pulse Oximeter] 102 H 103 H Respiratory Rate 20 Blood Pressure [Ri ght Arm] 188/119 H 165/107 H 187/116 H Blood Pressure [Ri ght Upper Arm] Pulse Oximetry 96 98 Oxygen Delivery Me thod Room Air Room Air 10/10/24 07:00 10/10/24 07:00 10/10/24 07:00 Temperature 98.2 F Pulse Rate 103 H Pulse Rate [Pulse Oximeter] Pulse Rate [Right Pulse Oximeter] 108 H 108 H Respiratory Rate 22 20 Blood Pressure [Ri ght Arm] 195/120 H Blood Pressure [Ri ght Upper Arm] Pulse Oximetry 94 Oxygen Delivery Me thod Room Air 10/10/24 07:00 10/10/24 11:00 Temperature 98.0 F Pulse Rate Pulse Rate [Pulse Oximeter] Pulse Rate [Right Pulse Oximeter] 101 H Respiratory Rate 22 18 Blood Pressure [Ri ght Arm] 166/118 H Blood Pressure [Ri ght Upper Arm] Pulse Oximetry 94 96 Oxygen Delivery Me thod Room Air Room Air Labs Labs: Laboratory Results - last 24 hr 10/09/24 10/09/24 10/09/24 14:00 14:25 15:20 WBC RBC Hgb Hct MCV MCH MCHC RDW Coeff of Mayra Plt Count Neut % (Auto) Lymph % (Auto) [place] % (Auto) Eos % (Auto) Baso % (Auto) Neut # (Auto) Lymph # (Auto) [place] # (Auto) Eos # (Auto) Baso # (Auto) Abs Immat Gran (auto) Imm/Tot Granulo (auto) Sodium Potassium Chloride Carbon Dioxide Anion Gap BUN Creatinine Estimated Creat Clear Estimated GFR Glucose Hemoglobin A1c 5.1 Lactate 2.5 H Calcium Magnesium Total Bilirubin AST ALT Alkaline Phosphatase Troponin I < 0.01 Total Protein Albumin Triglycerides 80 Lipase 5187 H Urine Color Yellow Urine Appearance Clear Urine pH 6.0 Ur Specific [place] 1.020 Urine Protein 2+ A Urine Glucose (UA) Negative Urine Ketones 2+ A Urine Blood Negative Urine Nitrite Negative Urine Bilirubin Negative Urine Urobilinogen 0.2 Ur Leukocyte Esterase Negative Urine RBC 0-2 Urine WBC 0-2 Ur Squamous Epith Cells Few Urine Bacteria Few A Lab Acknowledgement Test Added 10/09/24 10/09/24 10/09/24 18:48 20:45 20:58 WBC RBC Hgb Hct MCV MCH MCHC RDW Coeff of Mayra Plt Count Neut % (Auto) Lymph % (Auto) [place] % (Auto) Eos % (Auto) Baso % (Auto) Neut # (Auto) Lymph # (Auto) [place] # (Auto) Eos # (Auto) Baso # (Auto) Abs Immat Gran (auto) Imm/Tot Granulo (auto) Sodium Potassium Chloride Carbon Dioxide Anion Gap BUN Creatinine Estimated Creat Clear Estimated GFR Glucose Hemoglobin A1c Lactate 2.6 H Calcium Magnesium Total Bilirubin AST ALT Alkaline Phosphatase Troponin I 0.02 Total Protein Albumin Triglycerides Lipase Urine Color Urine Appearance Urine pH Ur Specific [place] Urine Protein Urine Glucose (UA) Urine Ketones Urine Blood Urine Nitrite Urine Bilirubin Urine Urobilinogen Ur Leukocyte Esterase Urine RBC Urine WBC Ur Squamous Epith Cells Urine Bacteria Lab Acknowledgement Test Added Test Added 10/10/24 08:33 WBC 19.17 H RBC 5.39 Hgb 16.8 Hct 49.0 MCV 91 MCH 31 MCHC 34 RDW Coeff of Mayra 11.8 Plt Count 172 Neut % (Auto) 90.2 H Lymph % (Auto) 4.5 L [place] % (Auto) 5.0 Eos % (Auto) 0.1 Baso % (Auto) 0.1 Neut # (Auto) 17.30 H Lymph # (Auto) 0.90 [place] # (Auto) 1.00 H Eos # (Auto) 0.00 Baso # (Auto) 0.00 Abs Immat Gran (auto) 0.00 Imm/Tot Granulo (auto) 0.1 Sodium 136 Potassium 4.2 Chloride 104 Carbon Dioxide 27 Anion Gap 5 L BUN 19 Creatinine 0.8 Estimated Creat Clear 75.44 Estimated GFR 95 Glucose 108 Hemoglobin A1c Lactate 2.1 H Calcium 9.4 Magnesium 1.8 Total Bilirubin 0.9 AST 65 H ALT 33 Alkaline Phosphatase 60 Troponin I Total Protein 7.2 Albumin 4.1 Triglycerides Lipase 3463 H Urine Color Urine Appearance Urine pH Ur Specific [place] Urine Protein Urine Glucose (UA) Urine Ketones Urine Blood Urine Nitrite Urine Bilirubin Urine Urobilinogen Ur Leukocyte Esterase Urine RBC Urine WBC Ur Squamous Epith Cells Urine Bacteria Lab Acknowledgement
--- NOTE | 2024-10-10 15:24 | PC.NURSE ---
End of shift report [id number]: Alert and oriented x 4. Upper abdominal pain reported, pain well managed with current regimen. Patient has required PRN medication q1-2 hours. Intermittent nausea reported, prn zofran effective. Tolerating clear liquids well. At 1445 patient telemetry showing heart rate in the 170's, rapid response called. EKG completed, BP166/103 and patient flush and diaphoretic at that time. Denies any SOB or chest pain. MD bedside and new order for 1L bolus normal saline. Patient heart rate decreased after 5 minutes.
[2024-10-10] MEDS: THIAMINE 100 MG TABLET PO (18:17)
--- NOTE | 2024-10-10 19:43 | PC.NURSE ---
End of shift.he has been very pleasant. Alert and oriented x 4. abdominal pain 4-7 he is getting po pain meds with relief. he is drinking water but did not want any supper. tele showing heart rate in the 170's 2 times this shift. using vagal maneuvers to decrease hR. MD was updated. patient flush and diaphoretic he Denies any SOB or chest pain. Hr goes up with getting up to the BR or the chair. midline was placed and is patent. labs can be drawn off the midline.
[2024-10-10] MEDS: METOPROLOL TARTRATE 25 MG TABLET PO (21:15)
--- NOTE | 2024-10-10 22:51 | PC.NURSE ---
Alert and oriented x 4. Up independently. Pain in upper abdominal pain reported 2/10. Tolerating clear liquids well no nausea. At 1908 patient telemetry showing heart rate in the 180's, aware. Denies any SOB or chest pain. At 2009 pt telemetry showing HR 200s, pt was up going to the bathroom, MD aware and okay with HR increasing with activity. CIWA 9 patient had increased agitation/anxiety and verbalized I am very restless. Oral medications given per [facility] protocol. Pt stated his restlessness improved after the medication.
[2024-10-11] VITALS (17 sets, daily range): BP systolic 140–189; BP diastolic 78–109; PULSE 77–147; RESP 18–24; TEMP 36.1–37.7; O2SAT 90–96
[2024-10-11] MEDS: LACTATED RINGERS 1000 ML 1,000 ML 125 ML IV (01:50)
[2024-10-11] MEDS: ACETAMINOPHEN 325 MG TABLET 650 MG PO (05:18)
[2024-10-11 06:50] LABS: Hematocrit 39.7 % (37.0-53.0); Hemoglobin* 13.5 gm/dL (13.5-17.5); Mean Corpuscular HGB Conc 34 gm/dL (32-36); Mean Corpuscular Hemoglobin 31 pg (26-34); Mean Corpuscular Volume 92 fL (80-100); Red Blood Count 4.31 m/uL (4.30-5.90); White Blood Count* 20.79 K/uL (4.50-11.00)
[2024-10-11 06:51] LABS: Slide Review Reflex No
[2024-10-11 07:05] LABS: Chloride* 98 mmol/L (96-114); Potassium* 4.2 mmol/L (3.6-5.1); Sodium* 132 mmol/L (135-149)
[2024-10-11 07:07] LABS: Blood Urea Nitrogen* 17 mg/dL (7-30); Creatinine* 0.8 mg/dL (0.5-1.5); Est. Creatinine Clearance* 75.44; Estimated Glomerular Filt Rate 95 ml/min
[2024-10-11 07:08] LABS: Calcium* 8.5 mg/dL (8.4-10.6); Carbon Dioxide* 30 mmol/L (20-32); Glucose* 106 mg/dL (60-115)
[2024-10-11 07:09] LABS: Anion Gap 4 mEq/L (7-15)
--- NOTE | 2024-10-11 07:19 | CRLHL7_ITS ---
For Patients: As a result of the Century Cures Act, medical imaging exams and procedure reports are released immediately into your electronic medical record. You may view this report before your referring provider. If you have questions, please contact your health care provider. INDICATION: Pneumonia COMPARISON: None TECHNIQUE: A single view study was obtained as a portable CXR FINDINGS: As discussed below IMPRESSION: 1. Normal-sized cardiac contour. 2. Minimal basilar opacities favor atelectasis. No definite focal infiltrate. No large effusions. No pneumothorax. 3. Mildly elevated left hemidiaphragm. Dictated by Vik Cadena MD @ 10/11/2024 8:02:37 AM (Electronically Signed)
[2024-10-11] MEDS: METOPROLOL TARTRATE 25 MG TABLET PO (07:33)
[2024-10-11] MEDS: MULTIVITAMIN/MINERALS 1 TABLET 1 TAB PO (07:33)
[2024-10-11] MEDS: FOLIC ACID 1 MG TABLET PO (07:33)
--- NOTE | 2024-10-11 07:38 | PC.NURSE ---
Pt is oriented to self, year and month didn?t know he was at the hospital. Pt denies pain, SOB, chest pain, and N/V. Pt?s CIWA scores have been 3-9. Pt received Lorazepam once per CIWA protocol. Pt is up A1/SBA with IV pole and has been unsteady on his feat. Pt had an oral temperature of 99.9 PRN Tylenol given. ?
[2024-10-11] MEDS: PHENobarbitaL 130 MG in 0.9 % SODIUM CHLORIDE 100 ml 100 ML 204 MG IVPB ×2 (07:58→10:46)
[2024-10-11] MEDS: cefTRIAXone 1 GM in 0.9 % SODIUM CHLORIDE Mini-bag 100 ML IVPB (08:32)
[2024-10-11] MEDS: THIAMINE 250 MG in 0.9 % SODIUM CHLORIDE 100 ml 100 ML 102.5 MG IVPB ×2 (09:40→13:52)
[2024-10-11] MEDS: METOPROLOL TARTRATE 1 MG/ML inj 5 MG IVP (10:39)
--- NOTE | 2024-10-11 11:24 | P.DS_ITS ---
DS: Providers Provider Date Seen: 10/11/24 Date of admission: 10/09/24 18:18 Primary care physician: Not a Local Provider Admitting Clinician: Yudith Buchanan MD Attending Physician on discharge: SHAZIA Tang, PAZacharyC [place] Hospitalist Date of Discharge: 10/11/24 DS: Diagnosis Discharge Diagnosis (1) Pancreatitis: Status: Acute Problem details: - acute pancreatitis (epigastric pain, nausea, elevated lipase, pancreatitis on CT abd), suspect due to alcohol use. Triglycerides are within normal limits. AST is mildly elevated, which could be consistent with alcohol use. Liver function tests otherwise unremarkable. Patient has not had any abdominal surgeries, right upper quadrant ultrasound is pending. - supportive cares with IV fluids, clear liquids for now and advance as tolerated when less painful or if hungry 10/10 lipase down trending, leukocytosis trending up, lactate slow to respond, remains mildly tachy, hypertensive. MRCP ordered. Fluid bolus in addition to maintenance fluids 10/11 lipase 762, WBC 20.79. MRCP without evidence of choledocholithiasis, necrosis, infectious process. Low-grade fever 99.9. Patient reports pain much improved. Tolerating clears without nausea vomiting. (2) Heavy alcohol use: Status: Acute Problem details: Patient is already diaphoretic, but says that he has gone for periods of time without alcohol even recently without any symptoms. I will give him a dose of phenobarbital tonight and start CIWA protocol. I have counseled patient on alcohol use and that the amount that he is drinking is considered heavy alcohol use and that any amount of alcohol in the future could potentially cause a rec urrence of pancreatitis. Patient expressed a desire to abstain from alcohol and said that it should be easy for him and did not need help. 10/11 full-blown alcohol withdrawals today, agitated, restless, confused, requiring 3 L O2 per N/C. Has received 6 mg Ativan this morning, receiving phenobarbital 130 mg p.r.n.. Discussed with critical care at [facility]. Accepts for transfer, 8 hour bed wait. We will continue with Ativan and phenobarbital as needed and will contact critical care team if rapidly declines. Anesthesia aware if he should need intubation. (3) CAD (coronary artery disease): Status: Chronic Problem details: - Abnormal stress test in 2019. Saw cardiology. Heart scan was recommended. Patient was lost to follow up. - patient is diaphoretic this evening which could be secondary to pain or withdrawal from alcohol, but I am concerned about his history of coronary artery disease without any treatment of hypertension and hyperlipidemia or follow-up for the last 5 years. I have reviewed the EKG from the emergency department and have added on a troponin to the labs drawn there. Additionally I will repeat an EKG and troponin. Monitor on cardiac telemetry. (4) Hypertension: Status: Chronic Problem details: Patient was lost to follow up, having last seen his PCP in 2019. He has not been taking any prescription medications. Elevated BPs here are likely complicated by pain. Monitor. Recommend reestablishing care as outpatient with a PCP to address h/o HTN, hyperlipidemia, CAD. 10/10 metoprolol added given ongoing hypertension and tachycardia 10/11 improved with oral metoprolol still hypertensive - which gives us room for managing withdrawals (5) Hyperlipidemia: Status: Chronic Problem details: History of this common none has been checked in the last 5 years he has not been on any medications. Recommend reestablishing with primary care as an outpatient to determine if medication is needed. (6) Lactate blood increased: Status: Acute Problem details: Patient is not septic, I suspect this is due to dehydration from pancreatitis. He will likely have abdominal 3rd spacing due to pancreatitis. Will give another IV fluid bolus and continue on maintenance fluids. 2.5-2.6-2.1 Continue fluid bolus and maintenance fluids (7) Tachycardia: Status: Acute Problem details: In setting of above. Remains hypertensive. 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 Starting IV metoprolol p.r.n. - appropriate responses short-term (8) Hyponatremia: Status: Acute Problem details: 10/11 mild, 132, monitor DS: Summary Hospital Course Hospital Course: Course of care and details as noted above. Admitted with acute pancreatitis, pain and lipase improving with IVF, pain medications. MRCP ordered in setting of low grade fever and leukocytosis without evidence of Time Spent with Patient Time attestation: Total time spent providing and/or coordinating discharge services: Exam Const: Vital Signs, click to edit/add: Vital Signs - 24 hr 10/10/24 15:15 10/10/24 15:15 10/10/24 15:20 Temperature 98.2 F Pulse Rate Pulse Rate [Right Pulse Oximeter] 105 H 105 H Respiratory Rate 18 18 18 Blood Pressure [Ri ght Arm] 160/103 H Pulse Oximetry 96 96 Oxygen Delivery Me thod Room Air Room Air Oxygen Flow Rate 10/10/24 17:04 10/10/24 19:00 10/10/24 19:04 Temperature 98.9 F 98 F Pulse Rate 104 H Pulse Rate [Right Pulse Oximeter] 152 H 151 H Respiratory Rate 22 18 Blood Pressure [Ri ght Arm] 186/113 H 186/115 H Pulse Oximetry 97 97 Oxygen Delivery Me thod Room Air Room Air Oxygen Flow Rate 10/10/24 23:00 10/10/24 23:00 10/10/24 23:07 Temperature 99.4 F Pulse Rate 95 Pulse Rate [Right Pulse Oximeter] 96 Respiratory Rate 16 16 Blood Pressure [Ri ght Arm] 165/97 H Pulse Oximetry 92 92 Oxygen Delivery Me thod Room Air Room Air Oxygen Flow Rate 10/11/24 02:15 10/11/24 03:00 10/11/24 03:57 Temperature 98.5 F 99.1 F Pulse Rate Pulse Rate [Right Pulse Oximeter] 99 99 97 Respiratory Rate 20 20 20 Blood Pressure [Ri ght Arm] 164/106 H 169/92 H 189/94 H Pulse Oximetry 94 92 90 Oxygen Delivery Me thod Room Air Room Air Room Air Oxygen Flow Rate 10/11/24 05:00 10/11/24 05:18 10/11/24 07:00 Temperature 99.9 F H 99.9 F H 98.8 F Pulse Rate Pulse Rate [Right Pulse Oximeter] 97 78 Respiratory Rate 20 18 Blood Pressure [Ri ght Arm] 155/83 H 158/78 H Pulse Oximetry 96 93 Oxygen Delivery Me thod Room Air Room Air Oxygen Flow Rate 10/11/24 07:00 10/11/24 07:00 10/11/24 07:00 Temperature 98.8 F Pulse Rate 95 Pulse Rate [Right Pulse Oximeter] 78 Respiratory Rate 22 18 Blood Pressure [Ri ght Arm] 158/78 H Pulse Oximetry 91 93 Oxygen Delivery Me thod Nasal Cannula Room Air Oxygen Flow Rate 3 10/11/24 07:33 10/11/24 08:10 10/11/24 08:36 Temperature 98.8 F 98.2 F 98.2 F Pulse Rate Pulse Rate [Right Pulse Oximeter] 77 77 Respiratory Rate 22 22 Blood Pressure [Ri ght Arm] 140/79 H 140/79 H Pulse Oximetry 91 91 Oxygen Delivery Me thod Nasal Cannula Nasal Cannula Oxygen Flow Rate 3 3 DS: Data Data Completed and Pending Labs on day of discharge: Labs from last 24 hours 10/11/24 06:30 WBC 20.79 H RBC 4.31 Hgb 13.5 Hct 39.7 MCV 92 MCH 31 MCHC 34 Plt Count 155 Sodium 132 L Potassium 4.2 Chloride 98 Carbon Dioxide 30 Anion Gap 4 L BUN 17 Creatinine 0.8 Estimated Creat Clear 75.44 Estimated GFR 95 Glucose 106 Calcium 8.5 Lipase 762 H Preliminary micro results at discharge 10/09/24 14:00 Urine Culture - Preliminary Urine,Clean Catch NO GROWTH AFTER 24 HOURS Discharge Plan Discharge Date of Admission: 10/09/24 18:18 Attending Physician on Admission: Yudith Buchanan Primary Care Provider: Provider,Not a Local Discharge Medications: No Action No Known Home Medications Follow Up Appointments: Serjio Rodriguez MD [Staff Physician, Family Practice] Provider,Not a Local [Primary Care Provider, Family Practice] Hospital Course: Course of care and details as noted above. Admitted with acute pancreatitis, pain and lipase improving with IVF, pain medications. MRCP ordered in setting of low grade fever and leukocytosis without evidence of
--- NOTE | 2024-10-11 11:50 | PM.DST ---
Transfer Discharge Sum: Prov Provider Date Seen: 10/11/24 Date of admission: 10/09/24 18:18 Primary care physician: Not a Local Provider Attending physician on admission: Yudith Buchanan Attending physician on discharge: Olga Root Anticipated date of transfer: 10/11/24 Receiving physician/facility: [facility] or [place], awaiting bed availability DS: Diagnosis Discharge Diagnosis (1) Pancreatitis: Status: Acute Problem details: - acute pancreatitis (epigastric pain, nausea, elevated lipase, pancreatitis on CT abd), suspect due to alcohol use. Triglycerides are within normal limits. AST is mildly elevated, which could be consistent with alcohol use. Liver function tests otherwise unremarkable. Patient has not had any abdominal surgeries, right upper quadrant ultrasound is pending. - supportive cares with IV fluids, clear liquids for now and advance as tolerated when less painful or if hungry 10/10 lipase down trending, leukocytosis trending up, lactate slow to respond, remains mildly tachy, hypertensive. MRCP ordered. Fluid bolus in addition to maintenance fluids 10/11 lipase 762, WBC 20.79. MRCP without evidence of choledocholithiasis, necrosis, infectious process. Low-grade fever 99.9. Patient reports pain much improved. Tolerating clears without nausea vomiting. (2) Heavy alcohol use: Status: Acute Problem details: Patient is already diaphoretic, but says that he has gone for periods of time without alcohol even recently without any symptoms. I will give him a dose of phenobarbital tonight and start CIWA protocol. I have counseled patient on alcohol use and that the amount that he is drinking is considered heavy alcohol use and that any amount of alcohol in the future could potentially cause a recurrence of pancreatitis. Patient expressed a desire to abstain from alcohol and said that it should be easy for him and did not need help. 10/11 full-blown alcohol withdrawals today, agitated, restless, confused, requiring 3 L O2 per N/C. Has received 6 mg Ativan this morning, receiving phenobarbital 130 mg p.r.n.. Discussed with critical care at [facility]. Accepts for transfer, 8 hour bed wait. We will continue with Ativan and phenobarbital as needed and will contact critical care team if rapidly declines. Anesthesia aware if he should need intubation. (3) CAD (coronary artery disease): Status: Chronic Problem details: - Abnormal stress test in 2019. Saw cardiology. Heart scan was recommended. Patient was lost to follow up. - patient is diaphoretic this evening which could be secondary to pain or withdrawal from alcohol, but I am concerned about his history of coronary artery disease without any treatment of hypertension and hyperlipidemia or follow-up for the last 5 years. I have reviewed the EKG from the emergency department and have added on a troponin to the labs drawn there. Additionally I will repeat an EKG and troponin. Monitor on cardiac telemetry. (4) Hypertension: Status: Chronic Problem details: Patient was lost to follow up, having last seen his PCP in 2019. He has not been taking any prescription medications. Elevated BPs here are likely complicated by pain. Monitor. Recommend reestablishing care as outpatient with a PCP to address h/o HTN, hyperlipidemia, CAD. 10/10 metoprolol added given ongoing hypertension and tachycardia 10/11 improved with oral metoprolol still hypertensive - which gives us room for managing withdrawals (5) Hyperlipidemia: Status: Chronic Problem details: History of this common none has been checked in the last 5 years he has not been on any medications. Recommend reestablishing with primary care as an outpatient to determine if medication is needed. (6) Lactate blood increased: Status: Acute Problem details: Patient is not septic, I suspect this is due to dehydration from pancreatitis. He will likely have abdominal 3rd spacing due to pancreatitis. Will give another IV fluid bolus and continue on maintenance fluids. 2.5-2.6-2.1 Continue fluid bolus and maintenance fluids (7) Tachycardia: Status: Acute Problem details: In setting of above. Remains hypertensive. 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 Starting IV metoprolol p.r.n. - appropriate responses short-term, continue oral metoprolol (8) Hyponatremia: Status: Acute Problem details: 10/11 mild, 132, monitor (9) Alcoholic encephalopathy: Status: Acute Problem details: In setting of acute alcohol withdrawal Oral thiamine changed to IV thiamine, continue folic acid, MVI IV Ativan and phenobarbital for withdrawal management Transfer Discharge Sum: Med Medications Active and Home Medications: Home Medications No Known Home Medications 10/09/24 [History Confirmed 10/09/24] Active Medications Acetaminophen (Acetaminophen 325 Mg Tablet) 650 mg PO Q6H PRN PRN Reason: As needed for fever, headache, or minor pain Last Admin: 10/11/24 05:18 Dose: 650 mg Folic Acid (Folic Acid 1 Mg Tablet) 1 mg PO DAILY [facility] Last Admin: 10/11/24 07:33 Dose: 1 mg Hydromorphone HCl (Hydromorphone 0.5 Mg/0.5 Ml Inj) 0.5 - 1 mg IVP Q1H PRN PRN Reason: Pain Last Admin: 10/11/24 08:40 Dose: 1 mg Lactated Ringer's (Lactated Ringers 1000 Ml) 1,000 mls @ 75 mls/hr IV .[id number] [facility] Ceftriaxone Sodium 1 gm/ (Sodium Chloride) 100 mls @ 200 mls/hr IVPB Q24H [facility] Last Infusion: 10/11/24 09:15 Dose: Infused Thiamine HCl 250 mg/ Sodium (Chloride) 102.5 mls @ 102.5 mls/hr IVPB TID [facility] Stop: 10/13/24 21:01 Last Infusion: 10/11/24 10:40 Dose: Infused Lorazepam (Lorazepam 1 Mg Tablet) 1 - 4 mg PO Q1H PRN; Protocol PRN Reason: Alcohol Withdrawal Last Admin: 10/11/24 09:50 Dose: 2 mg Lorazepam (Lorazepam 2 Mg/Ml Inj) 1 - 4 mg IVP Q1H PRN; Protocol PRN Reason: Alcohol Withdrawal Metoprolol Tartrate (Metoprolol Tartrate 25 Mg Tablet) 25 mg PO BID [facility] Last Admin: 10/11/24 07:33 Dose: 25 mg Multivitamins/Minerals (Multivitamin/Minerals 1 Tablet) 1 tab PO DAILY [facility] Last Admin: 10/11/24 07:33 Dose: 1 tab Ondansetron HCl (Ondansetron 2 Mg/Ml Inj) 4 mg IVP Q4H PRN PRN Reason: Nausea Last Admin: 10/10/24 13:14 Dose: 4 mg Oxycodone HCl (Oxycodone 5 Mg Tablet) 5 mg PO Q4H PRN Last Admin: 10/10/24 18:26 Dose: 5 mg Sodium Chloride (Sodium Chloride 0.9 % (Flush) 10 Ml Syringe) 5 ml IVF .FLUSH PRN Last Admin: 10/10/24 10:04 Dose: 5 ml Sodium Chloride (Sodium Chloride 0.9 % (Flush) 10 Ml Syringe) 5 ml IVF BID [facility]ESSEN[facility] Last Admin: 10/11/24 08:58 Dose: Not Given Transfer Discharge Sum: Hosp Hospital Course Hospital course: Joy Champagne is a 69 year old male significant alcohol use (closet drinker per ) with suspected history of on managed hypertension admitted with acute pancreatitis. Pain, nausea vomiting, lipase improved with IVF in pain medications, antiemetics. 10/11 fulminant alcohol withdrawal requiring multiple doses Ativan and phenobarbital. Discussed with Critical Care, accepts for transfer. Awaiting bed availability. Time Spent with Patient Time attestation: Total time spent providing and/or coordinating transfer services: Acuity is characterized as high and reflected in: Fulminant alcohol withdrawal, confusion, hypoxia, low-grade fever This patient will require hospital services as outlined in the assessment and plan in order to stabilize and be safely discharged to a lower level of care. Because of the risk and acuity as described above, this patient cannot be managed at a lower level of care. Total time spent: Greater than 30 minutes Exam Narrative: Exam Narrative: PHYSICAL EXAM General: Restless, agitated Cardiovascular: Intermittent tachycardia Pulmonary: Requiring 3 L Neurological: Confused though oriented to self date and place Skin: Warm, dry. Const: Vital Signs, click to edit/add: Vital Signs - 24 hr 10/10/24 15:15 10/10/24 15:15 10/10/24 15:20 Temperature 98.2 F Pulse Rate Pulse Rate [Right Pulse Oximeter] 105 H 105 H Respiratory Rate 18 18 18 Blood Pressure [Ri ght Arm] 160/103 H Pulse Oximetry 96 96 Oxygen Delivery Me thod Room Air Room Air Oxygen Flow Rate 10/10/24 17:04 10/10/24 19:00 10/10/24 19:04 Temperature 98.9 F 98 F Pulse Rate 104 H Pulse Rate [Right Pulse Oximeter] 152 H 151 H Respiratory Rate 22 18 Blood Pressure [Ri ght Arm] 186/113 H 186/115 H Pulse Oximetry 97 97 Oxygen Delivery Me thod Room Air Room Air Oxygen Flow Rate 10/10/24 23:00 10/10/24 23:00 10/10/24 23:07 Temperature 99.4 F Pulse Rate 95 Pulse Rate [Right Pulse Oximeter] 96 Respiratory Rate 16 16 Blood Pressure [Ri ght Arm] 165/97 H Pulse Oximetry 92 92 Oxygen Delivery Me thod Room Air Room Air Oxygen Flow Rate 10/11/24 02:15 10/11/24 03:00 10/11/24 03:57 Temperature 98.5 F 99.1 F Pulse Rate Pulse Rate [Right Pulse Oximeter] 99 99 97 Respiratory Rate 20 20 20 Blood Pressure [Ri ght Arm] 164/106 H 169/92 H 189/94 H Pulse Oximetry 94 92 90 Oxygen Delivery Me thod Room Air Room Air Room Air Oxygen Flow Rate 10/11/24 05:00 10/11/24 05:18 10/11/24 07:00 Temperature 99.9 F H 99.9 F H 98.8 F Pulse Rate Pulse Rate [Right Pulse Oximeter] 97 78 Respiratory Rate 20 18 Blood Pressure [Ri ght Arm] 155/83 H 158/78 H Pulse Oximetry 96 93 Oxygen Delivery Me thod Room Air Room Air Oxygen Flow Rate 10/11/24 07:00 10/11/24 07:00 10/11/24 07:00 Temperature 98.8 F Pulse Rate 95 Pulse Rate [Right Pulse Oximeter] 78 Respiratory Rate 22 18 Blood Pressure [Ri ght Arm] 158/78 H Pulse Oximetry 91 93 Oxygen Delivery Me thod Nasal Cannula Room Air Oxygen Flow Rate 3 10/11/24 07:33 10/11/24 08:10 10/11/24 08:36 Temperature 98.8 F 98.2 F 98.2 F Pulse Rate Pulse Rate [Right Pulse Oximeter] 77 77 Respiratory Rate 22 22 Blood Pressure [Ri ght Arm] 140/79 H 140/79 H Pulse Oximetry 91 91 Oxygen Delivery Me thod Nasal Cannula Nasal Cannula Oxygen Flow Rate 3 3 Transfer Discharge Sum: Data Imaging Chest x-ray: Attestation: I have reviewed the pertinent imaging results. Radiologist's impression: As discussed below IMPRESSION: 1. Normal-sized cardiac contour. 2. Minimal basilar opacities favor atelectasis. No definite focal infiltrate. No large effusions. No pneumothorax. 3. Mildly elevated left hemidiaphragm. MRI - abdomen: Attestation: I have reviewed the pertinent imaging results. Radiologist's impression: Mildly motion degraded exam. There is elevation of the left hemidiaphragm which is again noted. No substantial pleural effusion. Smooth hepatic contour. Slightly decreased hepatic signal intensity on the in phase images when compared with the out of phase images. The gallbladder is mildly distended. No cholelithiasis or gallbladder wall thickening. Normal caliber of the biliary tree. No choledocholithiasis is detected. No splenomegaly. Extensive pancreatic and peripancreatic edema is again noted compatible with pancreatitis. Please note that the presence or absence of necrotic pancreatic tissue is not assessed in the absence of intravenous contrast. No appreciable dilation of the main pancreatic duct. Normal adrenal glands. No hydronephrosis. No focal abnormally dilated loops of bowel within the field of view. Mild ascites. No enlarged regional lymph nodes. No abdominal aortic aneurysm. There are osseous degenerative changes Impression: 1. Acute pancreatitis with prominent peripancreatic edema and mild ascites. 2. Normal caliber of the biliary tree. No choledocholithiasis is detected. 3. Slightly decreased hepatic signal intensity on the in phase images when compared with the out of phase images, possibly artifactual or due to hepatic iron deposition. 4. Elevation of the left hemidiaphragm. US - abdomen: Attestation: I have reviewed the pertinent imaging results. Radiologist's impression: The distal abdominal aorta measures 1.9 centimeters in maximal diameter. The more proximal abdominal aorta is obscured by bowel gas. Visualized portion of the IVC is patent. The pancreas is obscured by bowel gas. The liver measures 15.9 centimeters in length. Smooth hepatic contour. Normal hepatic echogenicity. Negative sonographic Dawson`s sign. No gallbladder wall thickening. No pericholecystic fluid. No cholelithiasis. Mildly dilated gallbladder. Main portal vein diameter measures 6 millimeters. There is apparent bidirectional flow within the main portal vein. Main portal vein peak systolic velocity measures 57.1 cm/s. Right kidney measures 10.6 centimeters. No right-sided hydronephrosis. The common bile duct is obscured by bowel gas. IMPRESSION: Technically challenging exam due to overlying bowel gas The gallbladder is mildly distended, but is otherwise sonographically unremarkable. There is apparent bidirectional flow within the main portal vein. Some differential considerations include portal hypertension, portal vein occlusion (presumably beyond the field of view), vascular shunting, hepatic venous outflow obstruction, and right heart failure. Consider further evaluation with contrast-enhanced CT or MRI of the abdomen. CT scan - abdomen: Attestation: I have reviewed the pertinent imaging results. Radiologist's impression: Lower chest: Asymmetric elevation of the left hemidiaphragm. Mild left basilar bronchiectasis with surrounding basilar consolidation, at least partially reflecting atelectasis. Noncontrast technique limits solid organ evaluation. Liver: Normal in size and attenuation. No suspicious masses. Gallbladder and bile ducts: No stones or inflammation. No biliary dilatation. Pancreas: Moderate diffuse fat stranding about the pancreas with small to moderate volume free fluid tracking inferiorly along the retroperitoneal planes. Pancreatic parenchyma is not well evaluated on this noncontrast examination. Spleen: Normal in size. No masses. Adrenal glands: Normal in size. No nodules. Kidneys: Normal in size. No suspicious masses, stones, or hydronephrosis. GI tract: Adjacent to the pancreas, there is relative wall thickening of the 2nd and 3rd duodenal segments. Bowel is normal in caliber without evidence of obstruction. Mild colonic diverticulosis. Normal appendix. Vasculature: Abdominal aorta is normal in caliber. Lymph nodes: No lymphadenopathy. Peritoneum/Abdominal Wall: No sign of mass or infiltration. No free air small to moderate volume free fluid about the pancreas, as above. Pelvis: Nonspecific mild prostate calcification. Bones: Unremarkable for age. IMPRESSION: 1. Findings compatible with acute pancreatitis with small to moderate volume peripancreatic free fluid. The pancreatic parenchyma cannot be reliably evaluated for signs of necrosis or an underlying mass on this noncontrast examination. 2. Mild left basilar bronchiectasis with surrounding basilar consolidation, at least partially reflecting atelectasis. Transfer Discharge Sum: A/P Plan Cognitive capacity at transfer: Confused Discharge Plan Discharge Disposition: [facility] Date of Admission: 10/09/24 18:18 Attending Provider on Discharge: Olga Root Primary Care Provider: Provider,Not a Local Discharge Orders: Transfer of Care to Other Hospital (ORDER); Ordered 10/11/24 Ordered By: Olga Root Oxygen: Yes Oxygen Delivery Method: Nasal Cannula Drips/Lines: PICC, peripheral IV Services not available here: ICU
[2024-10-11] MEDS: ONDANSETRON 2 MG/ML inj 4 MG IVP (12:01)
[2024-10-11] MEDS: LACTATED RINGERS 1000 ML 1,000 ML 75 ML IV (12:39)
[2024-10-11] MEDS: PERFLUTREN LIPID MICROSPHERES 2 ML VIAL IVP (13:25)
--- NOTE | 2024-10-11 15:14 | PC.NURSE ---
TOOK OVER PATIENT CARE AROUND 0830 TODAY, PATIENT ALERT TO SELF ONLY. ABLE TO ANSWERS SOME QUESTIONS APPROPRIATELY BUT OTHERWISE DOES NOT ANSWER. THIS MORNING WAS ABLE TO AMBULATE WITH ASSIST OF 1 PIVOT TO CHAIR/BED. THIS AFTERNOON ON BEDREST DUE TO SEDATION. PATIENT SHOWING SIGNS OF WITHDRAWAL, CHANGES IN MENTATION, RAPID HR, RESTLESSNESS, SWEATING, NAUSEATED. AROUND 1030 PT HR SPIKED TO 140-170S MD UPDATED AND AT PATIENT BEDSIDE. EKG SHOWING SINUS TACH. IV METOPROLOL GIVEN PER ORDER. PATIENT UP THE BED. HR OVER THE NEXT HOUR DOWN TO 80S-90S. COLD WASH CLOTH AND ICE PACK TO ABDOMEN FOR PATIENT COMFORT. PRN ATIVAN GIVEN PER PROTOCOL. PRESENT AT BEDSIDE AND SUPPORTIVE. N2N GIVEN VIA PHONE TO RN AT [facility] ALL QUESTIONS ANSWERED. LEFT VIA EMS AT [id number].
== END 2024-10-11 14:58 | disposition short-term general hospital (02) | DRG 439 ==
LOC: ED 14:52 → MEDSURG 17:17
PROVIDERS: Internal Medicine; Physician Assistant; Admitting Provider Family Medicine; Emergency Provider Family Medicine; Visit Provider Family Medicine
DX: K85.20 Alcohol induced acute pancreatitis without necrosis or infection (principal); E87.1 Hypo-osmolality and hyponatremia; F10.239 Alcohol dependence with withdrawal, unspecified; F10.288 Alcohol dependence with other alcohol-induced disorder; G31.2 Degeneration of nervous system due to alcohol; E86.0 Dehydration; E78.5 Hyperlipidemia, unspecified; I25.10 Atherosclerotic heart disease of native coronary artery without angina pectoris; R94.31 Abnormal electrocardiogram [ECG] [EKG]; I10 Essential (primary) hypertension; I49.8 Other specified cardiac arrhythmias; R00.0 Tachycardia, unspecified
CPT/HCPCS: 36410; 36415; 71045; 74176; 74181; 76705; 76937; 80048; 80053; 81001; 83036; 83605; 83690; 83735; 84478; 84484; 85025; 85027; 86140; 87040; 87086; 93005; 93306; 94761; 99284; 99285; A4221; A9153; A9270; C1751; J0696; J1171; J2405; J2560; J3010; J3411; J7030; J7120; Q9957

== ENCOUNTER 2024-10-11 14:45 | Outpatient (CLI) | payer MEDICARE, SELFPAY | END 2024-10-11 14:46 | disposition home or self-care (01) | LOC: AMB 10-15 10:56 | PROVIDERS: Visit Provider Family Medicine | DX: K85.90 Acute pancreatitis without necrosis or infection, unspecified (principal); F10.90 Alcohol use, unspecified, uncomplicated | CPT/HCPCS: A0425; A0434 ==

== ENCOUNTER 2024-10-29 10:18 | Outpatient (CLI) | payer MEDICARE, SELFPAY | END 2024-10-29 10:19 | disposition home or self-care (01) | LOC: NFLDREF 11-01 16:53 | PROVIDERS: Visit Provider Family Medicine | DX: Z00.00 Encounter for general adult medical examination without abnormal findings (principal); I10 Essential (primary) hypertension; Z12.5 Encounter for screening for malignant neoplasm of prostate; G31.2 Degeneration of nervous system due to alcohol; E87.1 Hypo-osmolality and hyponatremia; I25.10 Atherosclerotic heart disease of native coronary artery without angina pectoris | CPT/HCPCS: 80053; 80061; G0103 ==

== ENCOUNTER 2024-11-26 15:10 | Outpatient (CLI) | payer MEDICARE, SELFPAY | END 2024-11-26 15:11 | disposition home or self-care (01) | PROVIDERS: Visit Provider Family Medicine | DX: D64.9 Anemia, unspecified (principal); E78.5 Hyperlipidemia, unspecified; I10 Essential (primary) hypertension; I25.10 Atherosclerotic heart disease of native coronary artery without angina pectoris | CPT/HCPCS: 80076; 82607; 82728; 83540; 83690 ==

== ENCOUNTER 2025-01-21 12:07 | Outpatient (CLI) | payer MEDICARE, SELFPAY | END 2025-01-21 12:08 | disposition home or self-care (01) | LOC: LKVREF 12:08 | PROVIDERS: PCP Family Medicine; Visit Provider Family Medicine | DX: K85.90 Acute pancreatitis without necrosis or infection, unspecified (principal) | CPT/HCPCS: 83690 ==